=== PATIENT | male | born 1975 | race Caucasian/White ===

== ENCOUNTER 2021-12-10 20:19 | Emergency (ER) | payer OTHER, SELFPAY ==
--- NOTE | ~2021-12-10 | CT_ITS ---
EXAMINATION: CT abdomen pelvis w con DATE: 12/10/2021 22:59 INDICATION: Right lower quadrant abdominal pain radiating to right back TECHNIQUE: Computed tomography (CT) of the abdomen and pelvis was performed with 100 CC Omnipaque 350 intravenous contrast. Automated exposure control and iterative reconstruction technique were employe d. Exam dose: 610.42 mGy-cm total exam DLP. COMPARISON: None. FINDINGS: The lung bases are clear. Normal heart size. No pericardial or pleural effusion. Liver, gallbladder, bile ducts, spleen, pancreas, pancreatic duct, and adrenal glands are unremarkabl e. Approximately 2.5 x 4.4 mm nonobstructing lower pole left renal calculus. Probable 3.5 mm left renal cyst, too small to definitively characterize. No right renal mass lesion o r left or right urinary tract calculus is noted otherwise. The urinary bladder appears normal. Mild prostate enlargement and prostate calcifications. Mild bilateral fat-containing inguinal hernias. Normal caliber of the abdominal aorta. No intraperitoneal or retroperitoneal or pelvic mass lesion or adenopathy or ascites. Normal appendix. No bowel obstruction, bowel wall thickening, pneumatosis or intraperitoneal free air . Small fat-containing umbilical hernia. Included skeletal structures are unremarkable. IMPRESSION: Normal appendix Nonobstructive mild left nephrolithiasis Probable 3.5 mm left renal cyst Small fat-containing umbilical hernia and bilateral small fat-containing inguinal hernias Reviewed, dictated and finalized at [facility] Reviewed, dictated and finalized at [facility] IMPRESSION: Normal appendix Nonobstructive mild left nephrolithiasis Probable 3.5 mm left renal cyst Small fat-containing umbilical hernia and bilateral small fat-containing inguin al hernias
[2021-12-10 20:25] VITALS: BP 152/99; PULSE 102; RESP 18; TEMP 36.9; O2SAT 98
[2021-12-10 20:46] LABS: Basophils Percent Auto 0.5 % (0.2-1.2); Eosinophils Absolute Auto 0.1 K/mm3 (0-0.3); Eosinophils Percent Auto 1.3 % (0-4.4); Hematocrit 46.4 % (42.0-52.0); Hemoglobin 16.6 g/dL (14.0-18.0); Immature Granulocyte Absolute 0.01 K/mm3 (0.00-0.031); Immature Granulocyte Percent A 0.2 % (0-0.5); Lymphocytes Absolute Auto 2.46 K/mm3 (0.9-3.2); Mean Corpuscular HGB Conc 35.8 g/dl (32-36); Mean Corpuscular Hemoglobin 31.4 pg (26-34); Mean Corpuscular Volume 87.7 fl (80-100); Mean Platelet Volume 9.5 fl (7.4-10.4); Monocytes Absolute Auto 0.5 K/mm3 (0.1-0.6); Monocytes Percent Auto 8.1 % (2.6-8.5); Neutrophils Absolute Auto 2.6 K/mm3 (1.3-6.7); Neutrophils Percent Auto 45.9 % (45.5-73.1); Platelet Count Result 278 k/mm3 (150-375); Red Blood Count 5.29 M/mm3 (4.6-6.20); Red Cell Distribution Width 12.4 % (11.5-14.5); White Blood Count 5.6 K/mm3 (4.5-10.0)
[2021-12-10 21:20] LABS: Alanine Aminotransferase 48 U/L (6-50); Alkaline Phosphatase 75 U/L (38-126); Anion Gap 17 mmol/L (8-16); Aspartate Amino Transferase 35 U/L (17-59); Bilirubin,Total 1.3 mg/dL (0.2-1.3); Blood Urea Nitrogen 18 mg/dL (9-20); Calcium 9.3 mg/dL (8.4-10.2); Carbon Dioxide 24 mmol/L (22-30); Chloride 102 mmol/L (98-107); Estimated CRCL calculation 69 ml/min; Estimated Glomerular Filt Rate > 60; Glucose 101 mg/dL (65-110); Potassium 4.1 mmol/L (3.4-5.0); Sodium 143 mmol/L (137-145)
[2021-12-10 21:38] LABS: Appearance Urine Clear (Clear); Bilirubin Urine Negative (Negative); Blood Urine Negative (Negative); Color Urine Yellow (Yellow); Glucose Urine UA Negative (Negative); Ketones Urine Trace mg/dL (Negative); Leukocyte Esterase Ur Negative LEU/UL (Negative); Nitrate Urine Negative (Negative); Protein Urine Negative (Negative)
[2021-12-10 21:40] LABS: Amorphous Sediment Urine Few; Mucus Urine Rare /lpf; RBC Urine 0-2 /hpf (0-2); Squamous Epithelial Cell Urine Rare /hpf (Few); WBC Urine 0-3 /hpf
[2021-12-10 21:41] LABS: Add Urine Microscopic? YES
--- NOTE | 2021-12-10 21:43 | ED.GENADULT ---
HPI - General Adult General Chief complaint: Back Pain/Injury Stated complaint: RKQ and right flank pain Time Seen by Provider: 12/10/21 21:32 Source: RN notes reviewed History of Present Illness HPI narrative: Patient presents emergency room from home for abdominal pain. Patient states pain began proximally 5 days ago. The pain is located right lower quadrant and radiates around to the right flank as well as down into the right groin he states the pain is described as sharp and stabbing. Nothing seems to make the pain better or worse. States he has not take anything for the pain at home. He denies any fevers or chills, nausea vomiting diarrhea or any other symptoms Related Data Allergies Allergy/AdvReac Type Severity Reaction Status Date / Time NKDA Allergy Mild Uncoded 05/16/08 18:22 Review of Systems Review of Systems: Gen.: Denies fevers or chills ENT: Denies congestion Respiratory: Denies shortness of breath or cough CV: Denies chest pain or palpitations GI: See HPI denies burning, urgency, frequency or hematuria Musculoskeletal: Denies back pain or muscle pain Neuro: Denies numbness, tingling, weakness or focal weakness Skin: Denies rash Except as documented, all other systems reviewed and negative [facility] Past Medical History Medical History (Updated 12/11/21 @ 01:31 by Alberto Morgan DO) Patient denies significant medical history Social History Social History (Updated 12/10/21 @ 21:44 by Alberto Morgan DO) Smoking status: Never smoker Exam Narrative: APPEARANCE: No acute distress, nontoxic, resting in bed HEENT: Normocephalic, atraumatic, OMM RESPIRATORY: No respiratory distress, clear to auscultation bilaterally with no rhonchi wheezing or rales CARDIOVASCULAR: RRR s murmur ABDOMINAL: Soft nondistended tender palpation right lower quadrant no tenderness right upper quadrant, left upper quadrant left lower quadrant no rebound or guarding Back: No midline thoracic or lumbar tenderness palpation tender palpation right [place] muscles L3-5 pain increased with rotation of the torso to the right : No skin lesions, no scrotal swelling or erythema bilateral testicles are nontender to palpation no hematoma MUSCULOSKELETAl: Moves all extremities. No clubbing, cyanosis or edema. NEURO: Awake and alert. Following commands, speech normal, no focal deficits SKIN:: Warm, dry. Normal Color PSYCHIATRIC: Normal affect/mood Course Course Emergency Course: Patient states pain was improved with Toradol Discussed with patient results of workup and diagnosis. Discussed need for follow-up with primary care, proper use of medication, and reasons to return to the emergency department. Patient understands and agrees to current treatment plan Vital Signs Vital signs: Vital Signs Temperature 98.5 F 12/10/21 20:25 Pulse Rate 102 H 12/10/21 20:25 Respiratory Rate 18 12/10/21 20:25 Blood Pressure 152/99 H 12/10/21 20:25 Pulse Oximetry 98 12/10/21 20:25 Oxygen Delivery Room Air 12/10/21 20:25 Temperature 98.5 F 12/10/21 20:25 Pulse Rate 79 12/10/21 23:42 Respiratory Rate 20 12/10/21 23:42 Blood Pressure 135/88 12/10/21 23:42 Pulse Oximetry 99 12/10/21 23:42 Oxygen Delivery Room Air 12/10/21 20:[address] [facility] Narrative Medical decision making narrative: Patient's abdomen is soft without significant pain or signs of surgical abdomen on serial exams. Lab and x-ray evaluations are reviewed and patient is felt to be a reasonable candidate for outpatient management. Patient was instructed as to limitations of x-ray and laboratory evaluation and encouraged to return to ED or primary physician for repeat exam in 12 hours if continued or worsening pain at this time I suspect likely musculoskeletal will treat with muscle relaxers and anti-inflammatory medication Vital Signs Vital Signs: Vital Signs Temperature 98.5 F 12/10/21 20:25 Pulse Rate 102 H
[2021-12-10] MEDS: SODIUM CHLORIDE 0.9% IV 1,000 ML 999 ML IV CONT (22:09)
[2021-12-10] MEDS: KETOROLAC 30 MG/ML VIAL (*BKC) IV PUSH (22:09)
[2021-12-10 23:42] VITALS: BP 135/88; PULSE 79; RESP 20; O2SAT 99
--- NOTE | 2021-12-11 01:12 | PC.NURSE ---
RN called CT to see about CT scan. radiology ct technologist states the scan was just sent to stat rad at 15 minutes prior and is at the bottom of list. ERP made aware
== END 2021-12-11 01:47 | disposition home or self-care (01) ==
PROVIDERS: Emergency Medicine; Emergency Provider Emergency Medicine; PCP Family Medicine
DX: M54.50 Low back pain, unspecified (principal); R10.31 Right lower quadrant pain
CPT/HCPCS: 36415; 74177; 80053; 81001; 85025; 96361; 96374; 99284; J1885; J7030; Q9967

== ENCOUNTER 2023-01-23 11:30 | Emergency (ER) | payer OTHER, SELFPAY ==
--- NOTE | ~2023-01-23 | CT_ITS ---
EXAMINATION: CT brain wo con DATE: 01/23/2023 14:04 INDICATION: Headache TECHNIQUE: Computed tomography (CT) of the head was performed without intravenous contrast. Sagittal and coronal reconstructions were performed. The mA was adjusted according to patient size. Iterative reconstruction technique was employed. The dose-length product was 681.00 mGy-cm. COMPARISON: None FINDINGS: No acute intracranial hemorrhage, acute infarction or abnormal extra axial fluid collection. Ventricl es are normal and symmetric. No mass/mass effect. The orbits, paranasal sinuses and mastoid air cells are normal. IMPRESSION: 1. Normal head CT. No acute intracranial process. Reviewed, dictated and finalized at [facility].
[2023-01-23 11:40] VITALS: BP 161/94; PULSE 83; RESP 18; TEMP 36.6; O2SAT 100
[2023-01-23 12:59] VITALS: BP 140/92; PULSE 73; RESP 16; O2SAT 100
--- NOTE | 2023-01-23 13:05 | ECG_ITS ---
Measurements Intervals [place] Rate: 68 P: 44 MA: 156 QRS: -6 QRSD: 98 T: 16 QT: 362 QTc: 386 Interpretive Statements SINUS RHYTHM NORMAL ELECTROCARDIOGRAM NO PREVIOUS ECG AVAILABLE FOR COMPARISON Electronically Signed On 01-23-2023 15:00:49 CDT by Adrián Hopper M.D.
--- NOTE | 2023-01-23 13:07 | ED.HA ---
HPI - Headache General Chief Complaint: Headache Stated Complaint: headache X3 days-HTN Time Seen by Provider: 01/23/23 13:00 Related Data Allergies Allergy/AdvReac Type Severity Reaction Status Date / Time NKDA Allergy Mild Unknown Uncoded 01/23/23 11:43 [facility] Past Medical History Medical History (Updated 01/23/23 @ 14:34 by Alyson Brown III DO) Patient denies significant medical history Social History Social History (Updated 12/10/21 @ 21:44 by Alberto Morgan DO) Smoking status: Never smoker Course Vital Signs Vital signs: Vital Signs Temperature 97.9 F 01/23/23 11:40 Pulse Rate 83 01/23/23 11:40 Respiratory Rate 18 01/23/23 11:40 Blood Pressure 161/94 H 01/23/23 11:40 Pulse Oximetry 100 01/23/23 11:40 Oxygen Delivery Room Air 01/23/23 11:40 Temperature 97.9 F 01/23/23 11:40 Pulse Rate 76 01/23/23 14:25 Respiratory Rate 17 01/23/23 14:25 Blood Pressure 148/98 H 01/23/23 14:25 Pulse Oximetry 100 01/23/23 14:25 Oxygen Delivery Room Air 01/23/23 11:40 MDM - Headache MDM Narrative Medical decision making narrative: pt has sudden onset [place] several days ago and no neuro symptoms, Pt also has elevated BP and is concerned about that. will check ekg and labs and get CT brain. CT neg blood work and ekg fine. Pt feels better after pain meds and wants to go home. Lab Data 01/23/23 13:20 01/23/23 13:20 Labs: Lab Results 01/23/23 Range/Units 13:20 WBC 4.1 L (4.5-10.0) K/mm3 RBC 5.07 (4.6-6.20) M/mm3 Hgb 16.0 (14.0-18.0) g/dL Hct 45.8 (42.0-52.0) % MCV 90.3 (80-100) fl MCH 31.6 (26-34) pg MCHC 34.9 (32-36) g/dl RDW 12.8 (11.5-14.5) % Plt Count 244 (150-375) k/mm3 MPV 9.8 (7.4-10.4) fl Immature Gran % (Auto) 0.2 (0-0.5) % Neut % (Auto) 54.5 (45.5-73.1) % Lymph % (Auto) 37.9 (18.3-44.2) % [place] % (Auto) 5.4 (2.6-8.5) % Eos % (Auto) 1.5 (0-4.4) % Baso % (Auto) 0.5 (0.2-1.2) % Lymph # (Auto) 1.55 (0.9-3.2) K/mm3 [place] # (Auto) 0.2 (0.1-0.6) K/mm3 Eos # (Auto) 0.1 (0-0.3) K/mm3 Baso # (Auto) 0.0 (0.0-0.1) K/mm3 Abs Immat Gran (auto) 0.01 (0.00-0.031) K/mm3 Absolute Neuts (auto) 2.2 (1.3-6.7) K/mm3 Absolute Nucleated RBC 0.0 (0.0-0.012) K/mm3 Nucleated RBC % 0.0 (0.0-0.2) % Sodium 140 (137-145) mmol/L Potassium 4.3 (3.4-5.0) mmol/L Chloride 103 (98-107) mmol/L Carbon Dioxide 28 (22-30) mmol/L Anion Gap 9 (8-16) mmol/L BUN 14 (9-20) mg/dL Creatinine 1.10 (0.7-1.3) mg/dL Estim Creat Clear Calc 77 ml/min Estimated GFR > 60 (59 - ) Glucose 88 (65-110) mg/dL Calcium 9.5 (8.4-10.2) mg/dL Total Bilirubin 1.2 (0.2-1.3) mg/dL AST 30 (17-59) U/L ALT 35 (6-50) U/L Alkaline Phosphatase 66 (38-126) U/L Troponin I < 0.012 (0.000-0.034) ng/mL Total Protein 9.0 H (6.3-8.2) g/dL Albumin 4.9 (3.5-5.1) g/dL Discharge Plan Discharge Clinical Impression: Headache, Hypertension Patient Disposition: Home, Self-Care Condition: Improved Instructions: Antibiotic Form, Acute Headache (ED), Hypertension (ED) Prescriptions: No Action cyclobenzaprine 10 mg tablet 10 mg PO TID PRN (Reason: muscle spasm) Qty: 8 0RF ibuprofen 600 mg tablet 600 mg PO TID PRN (Reason: pain) Qty: 14 0RF Follow-up/Referrals: Harms,Yordan Gutierrez M.D. [Primary Care Provider] -
[2023-01-23 13:18] VITALS: BP 132/94; PULSE 77; RESP 16; O2SAT 100
[2023-01-23] MEDS: ONDANSETRON INJ 4 MG/2 ML VIAL IV PUSH (13:26)
[2023-01-23] MEDS: MORPHINE SULFATE (*CRX) 4 MG/ML INJ IV PUSH (13:27)
[2023-01-23 13:29] LABS: Basophils Percent Auto 0.5 % (0.2-1.2); Eosinophils Absolute Auto 0.1 K/mm3 (0-0.3); Eosinophils Percent Auto 1.5 % (0-4.4); Hematocrit 45.8 % (42.0-52.0); Immature Granulocyte Absolute 0.01 K/mm3 (0.00-0.031); Immature Granulocyte Percent A 0.2 % (0-0.5); Lymphocytes Absolute Auto 1.55 K/mm3 (0.9-3.2); Lymphocytes Percent Auto 37.9 % (18.3-44.2); Mean Corpuscular HGB Conc 34.9 g/dl (32-36); Mean Corpuscular Hemoglobin 31.6 pg (26-34); Mean Corpuscular Volume 90.3 fl (80-100); Mean Platelet Volume 9.8 fl (7.4-10.4); Monocytes Absolute Auto 0.2 K/mm3 (0.1-0.6); Monocytes Percent Auto 5.4 % (2.6-8.5); Neutrophils Absolute Auto 2.2 K/mm3 (1.3-6.7); Neutrophils Percent Auto 54.5 % (45.5-73.1); Platelet Count Result 244 k/mm3 (150-375); Red Blood Count 5.07 M/mm3 (4.6-6.20); Red Cell Distribution Width 12.8 % (11.5-14.5); White Blood Count 4.1 K/mm3 (4.5-10.0)
[2023-01-23 13:39] LABS: Alanine Aminotransferase 35 U/L (6-50); Albumin Level 4.9 g/dL (3.5-5.1); Alkaline Phosphatase 66 U/L (38-126); Anion Gap 9 mmol/L (8-16); Aspartate Amino Transferase 30 U/L (17-59); Bilirubin,Total 1.2 mg/dL (0.2-1.3); Blood Urea Nitrogen 14 mg/dL (9-20); Calcium 9.5 mg/dL (8.4-10.2); Carbon Dioxide 28 mmol/L (22-30); Chloride 103 mmol/L (98-107); Estimated CRCL calculation 77 ml/min; Estimated Glomerular Filt Rate > 60; Glucose 88 mg/dL (65-110); Potassium 4.3 mmol/L (3.4-5.0); Sodium 140 mmol/L (137-145)
[2023-01-23 13:51] LABS: Troponin I < 0.012 ng/mL (0.000-0.034)
[2023-01-23 14:25] VITALS: BP 148/98; PULSE 76; RESP 17; O2SAT 100
== END 2023-01-23 14:42 | disposition home or self-care (01) ==
PROVIDERS: Emergency Provider Emergency Medicine; PCP Family Medicine
DX: R51.9 Headache, unspecified (principal); I10 Essential (primary) hypertension
CPT/HCPCS: 36415; 70450; 80053; 84484; 85025; 93005; 96374; 96375; 99284; J2270; J2405

== ENCOUNTER 2024-08-01 14:41 | Outpatient (CLI) | payer BC, SELFPAY ==
--- NOTE | ~2024-08-01 | CT_ITS ---
Non-contrast CT scan of the Abdomen and Pelvis Clinical indication: Abdominal pain Technique: 2.5 mm axial scans were obtained through the abdomen and pelvis without intravenous or or al contrast. Dose reduction technique was used on this scan by utilizing automated exposure control a nd iterative reconstruction technique. The dose-length product (DLP) was 1113.42 mGy-cm. COMPARISON: 12/10/2021 Findings: Images through the lung bases reveal no abnormalities. 3 mm nonobstructing left renal stone present. No right renal stone. No ureteral stone or hydronephros is on either side. Probable diffuse hepatic steatosis. The spleen, pancreas, gallbladder, and adrenals appear normal. T here is no aortic aneurysm. There is no evidence of bowel obstruction. There is wall thickening and inflammatory change at the mi d sigmoid colon, compatible with acute diverticulitis. No abscess or free air. Images through the pelvis were performed. There is no evidence of ascites or lymphadenopathy. Urinary bladder unremarkable. No pelvic mass seen. No ascites. Impression: Acute diverticulitis of the mid sigmoid colon. No abscess or free air. No bowel obstruction. 3 mm nonobstructing left renal stone. Diffuse hepatic steatosis. Reviewed, dictated and finalized at [facility]. Impression: Acute diverticulitis of the mid sigmoid colon. No abscess or free air. No bowel obstruction. 3 mm nonobstructing left renal stone. Diffuse hepatic steatosis.
== END 2024-08-01 14:42 | disposition home or self-care (01) ==
PROVIDERS: PCP Nurse Practitioner Family; Visit Provider Nurse Practitioner Family
DX: K57.32 Diverticulitis of large intestine without perforation or abscess without bleeding (principal); N20.0 Calculus of kidney; K76.0 Fatty (change of) liver, not elsewhere classified
CPT/HCPCS: 74176

== ENCOUNTER 2024-08-02 02:11 | Emergency (ER) | payer BC, SELFPAY ==
--- NOTE | ~2024-08-02 | CT_ITS ---
CT of the Abdomen and Pelvis: Indication: Abdominal pain Technique: 2.5 mm axial scans were obtained through the abdomen and pelvis following intravenous adm inistration of 100 cc of Omnipaque 350. Dose reduction technique was used on this scan by utilizing a utomated exposure control and iterative reconstruction technique. The dose-length product (DLP) was 8 68.76 mGy-cm. COMPARISON: Noncontrast exam performed earlier on 08/01/2024. Findings: Scans through the lung bases are unremarkable. There is diffuse hepatic steatosis. The spleen, pancreas, gallbladder, adrenals and right kidney are within normal limits. 5 mm nonobstructing left renal stone present. No evidence of aortic aneurysm. No lymphadenopathy. There is wall thickening and pericolonic inflammatory change of the mid sigmoid colon, compatible wit h acute diverticulitis. No abscess or free air evident. No bowel obstruction. Images through the pelvis were performed. Urinary bladder unremarkable. Prostate gland is unremarkabl e. No ascites. Impression: Acute sigmoid diverticulitis. No abscess or free air. Diffuse hepatic steatosis. 5 mm nonobstructing left renal stone. Reviewed, dictated and finalized at location . Impression: Acute sigmoid diverticulitis. No abscess or free air. Diffuse hepatic steatosis. 5 mm nonobstructing left renal stone.
--- OUTSIDE RECORDS SUMMARY | 2024-08-02 02:14 | XMS_ITS | Encounter Summary ---
Author Organization [facility] Healthcare Address [address] [place] [address] Care Team Providers Care Fleet Technician Name Role Phone Yordan Gomez MD Primary Care Provider [phone] Encounter Details Date Type Department Care Team (Late st Contact Info) Description 07/23/2024 Results Follow-Up [facility] [address] [place] [address] Lindy Gallagher, JEWELRY BENCH WORKER [address] [place] [address] Vitamin D deficiency (Primary Dx) Social History Tobacco Use Types Packs/Day Years Used Date Smoking Tobacco: Former Cigarettes 0.3 5.2 Smokeless Tobacco: Never Alcohol Use Standard Drinks/Week Comments Yes 0 (1 standard drink = 0.6 oz pur e alcohol) Occassional AUDIT-C Answer Date Recorded Q1: How often do you have a drink containing alc ohol? 2-3 times a week 07/20/2022 Q2: How many drinks containi ng alcohol do you have on a typical day when you are drinking? 3 or 4 07/20/2022 Q3: How often do you have si x or more drinks on one occasion? 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 Gender Identity Male 12/19/2019 2:38 PM CDT Sexual Orientation Straight 12/19/2019 2: 38 PM CDT documented as of this encounter Ordered Prescriptions Prescription Sig Dispense Quantity Refills Last Filled Start Date End Date ergocalciferol (VITAMIN D) 50,000 unit capsule Take 1 capsule (50,000 Units total) by mouth once a week 12 capsule 4 07/23/2024 documented in this encounter Plan of Treatment Scheduled Orders Name Type Priority Associated Diagnoses Orde r Schedule Vitamin D 25 hydroxy Lab Routine Vitamin D deficiency Expected: 10/22/2024, Expires: 07/23/2025 documented as of this encounter Visit Diagnoses Diagnosis Vitamin D deficiency- Primary documented in this encounter Care Teams Fleet Technician Relationship Specialty Start Date End Date Yordan Gomez MD [address] [place] [address] PCP - General 06/30/16 documented as of this encounter
--- OUTSIDE RECORDS SUMMARY | 2024-08-02 02:14 | XMS_ITS | Clinical Summary ---
Author Organization [facility] Address [address] [place] [address] Care Team Providers Care Certified Diabetes Educator Name Role Phone Yordan Gomez MD Primary Care Provider [phone] Allergies No known active allergies Medications pravastatin (PRAVACHOL) 40 mg tabletIndications:M ixed hyperlipidemia TAKE 1 TABLET(40 MG) BY MOUTH DAILY 100 tablet 4 Active ezetimibe (ZETIA) 10 mg tablet Take 1 tablet (10 mg total) by mouth daily 90 tablet 4 4 09/13/19 25 Active omeprazole (PriLOSEC) 20 mg capsuleIndications: Abdominal bloating TAKE 1 CAPSULE(20 MG) BY MOUTH DAILY 100 capsule 1 5 Active testosterone cypionate, bulk, 100 % powder 0 5 Active ergocalciferol (VITAMIN D) 50,000 unit capsule Take 1 capsule (50,000 Units total) by mouth once a week 12 capsule 4 5 07/24/19 26 Active Active Problems Problem Noted Date Diagnosed Date 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 He did bring in a list of labs that they have requested. I did place those orders for him today as well. He will continue to follow testosterone placement with specialist. Fatigue 07/29/2024 Assessment & Plan (07/29/2024 3:45 PM CDT): Will check vitamin-D level along with labs requested by functional health medicine. Chronic bilateral lower abdominal pain Assessment & Plan (07/29/2024 3:46 PM CDT): Pain across low abdomen pelvis in the mornings. Chronic. Chronic back pain. Back pain has been manageable. Will check abdominal CT to rule out possible diverticulitis although less likely. Class 1 obesity due to exces s calories with serious comorbidity and body mass index (BMI) of 32.0 to 32.9 in adult 07/29/2024 Annual physical exam 01/30/2024 Assessment & Plan (01/30/2024 8:37 AM CDT): In regard to health maintenance, Colonoscopy utd repeat 2030 Influenza vaccine utd Eat a healthy diet: focus on lean meats and proteins, more fruits, vegetables and whole grains and low in sugars and fats. Limit red meat and avoid processed meat. Maintain a healthy weight; avoid being overweight. Aim for a normal body mass index (BMI) of 18.5-24.9. Help learning to eat healthier, we can set up appointment with dairy nutritionist/certified medication technician. Have an active lifestyle, strive for 30 minutes of moderate exercise 5 times a week and strength or resistance training at least twice a week. Use broad-spectrum (UVA+UVB) sunscreen with SPF 30 or greater, is water resistant, limit time spent in the sun (10 am-4pm), wear hat, wear UV protective clothing, wear sunglasses. Never use a tanning bed. Skin that was irradiated may be more sensitive over your lifetime. Do not smoke or chew tobacco; participate in a smoking cessation program. Limit alcohol intake, 1 drink per day for a woman and 2 drinks per day for a man. Chronic bilateral low back pain without sciatica 01/30/2024 Assessment & Plan (01/30/2024 8:38 AM CDT): Continued back pain. Will refer to pain management. Will be provided with the phone number to call. Appreciate their expertise. Helga abdominal pain 01/30/2024 Assessment & Plan (01/30/2024 8:42 AM CDT): Benign abdominal exam. No noted enlarged lymph nodes. Will order CT for further evaluation. Gastroesophageal reflux disease 07/27/2023 Assessment & Plan (07/27/2023 8:04 AM CDT): Continue with omeprazole. Avoid triggers. Acute bilateral low back pain without sciatica 0 07/27/2023 Assessment & Plan (07/27/2023 8:05 AM CDT): Will obtain imaging and refer for physical therapy. Offered muscle relaxant but he declines. He will take p.r.n. ibuprofen OTC with food. Will monitor response. Class 1 obesity due to exces s calories with serious comorbidity and body mass index (BMI) of 31.0 to 31.9 in adult 07/27/2023 Nephrolithiasis 01/17/2022 Mixed hyperlipidemia 01/14/2021 Assessment & Plan (07/29/2024 3:44 PM CDT): Continue ezetimibe and recommend pravastatin. Will check lipid panel. Will continue to monitor. Assessment & Plan (01/30/2024 8:37 AM CDT): He is taking ezetimibe. Stopped pravastatin. Discussed we normally take both of these meds together. Adjunct treatment. Will check lipid panel today and plan accordingly. Assessment & Plan (07/27/2023 8:04 AM CDT): Will stay off statin and check lipid panel. Will plan accordingly once results are received. Encouraged heart healthy diet and exercise. Assessment & Plan (01/14/2021 9:47 AM CDT): 04/07/17 XQ=559 HDL=49 XQ=337 NWW=635 AWAURK=828 12/16/20 BX=801 HDL=59 NA=317 KPI=827 TC/HDL=3.7 MYPZQD=064 12/14/20 TT=698 HDL=59 OA=467 TMF=567 TC/HDL=4 PGGFWR=690 The 10-year ASCVD risk score (Ovid JOSE Jr., et al., 2013) is: 1.6% Values used to calculate the score: Age: 45 years Sex: Male Is Non- : No Diabetic: No Tobacco smoker: No Systolic Blood Pressure: 120 mmHg Is BP treated: No HDL Cholesterol: 59 mg/dL Total Cholesterol: 221 mg/dL Pravastatin 20mg increased to 40mg daily d/t elevated TC/LDL. Patient should focus on limiting bad fats in the diet and using exercise as a way to improve the lipid status. Secondary prevention. Reviewed medications. Denies any statin Ses. Reviewed diet/exercise recommendations. Reviewed red flags. To make f/u appt in 6 mos & have labs drawn few days prior. Gallbladder polyp 11/10/2020 Family history of colon cancer 09/28/2020 Abdominal bloating 09/28/2020 Early satiety 09/28/2020 LUQ discomfort 09/28/2020 Bowel habit changes 09/28/2020 History of duodenal ulcer 09/28/2020 Resolved Problems Problem Noted Date Diagnosed Date Resolved Date BMI 28.0-28.9,adult 01/14/2021 07/27/19 Assessment & Plan (01/14/2021 9:23 AM CDT): Discussed healthy diet and importance of regular physical activity. Need for influenza vaccination 01/14/2021 07/27/2023 Assessment & Plan (01/14/2021 9:24 AM CDT): Flu vaccine given today. Discussed possible tenderness/redness at injection site. Encounters Date Type Department Care Team Description 08/01/2024 Telephone [facility] [address] [address] Yordan Gomez MD Request For Order(s) 07/23/2024 Results Follow-Up [facility] [address] [address] Lindy Gallagher, TERESITA Vitamin D deficiency (Primary Dx) 07/17/2024 7:00 AM CDT Office Visit [facility] [place] [address] [place] [id number] Lindy Gallagher NP Mixed hyperlipidemia (Primary Dx); Testicular hypofunction; Fatigue, unspecified type; Chronic bilateral lower abdominal pain; Class 1 obesity due to excess calories with serious comorbidity and body mass index (BMI) of 32.0 to 32.9 in adult 07/01/2024 Telephone [facility] [address] [address] Lindy Gallagher NP from Last 3 Months Immunizations Immunization Administration Dates Next Due Influenza, Quadrivalent, Spl it, Preservative Free, Intramuscular 01/19/2023,01/17/2022,01/14/2021,12/15 Influenza, Split 01/30/2013 Influenza, Trivalent, Preser vative Free, Intramuscular 01/30/2024,02/25/2014 Influenza, Unspecified 01/01/2021,01/01/2017,04/2016 Surgical History Surgery Date Site/Laterality Comments COLONOSCOPY 12/15/2020 1st GURPREET 2012 Medical History Medical History Date Comments Hyperlipidemia GERD (gastroesophageal reflux disease) 2020 Peptic ulceration 1996 Family History Medical History Relation Name Comments Cancer Father Fred Lymphoma Father Fred Other Father Fred Healthy; Coronary artery disease Maternal Grandfather Coronary artery disease; Cancer Maternal Grandmother Mariela Other Mother Healthy; Cancer Paternal Grandfather Scott Coronary artery disease Paternal Grandfather Scott Coronary artery disease; Heart disease Paternal Grandfather Scott COPD Paternal Grandmother Gianna Cancer Paternal Grandmother Gianna Diabetes Paternal Grandmother Gianna Diabetes type II Paternal Grandmother Gianna D M Type II; Relation Name Status Comments Father Fred Maternal Grandfather Alive Maternal Grandmother Mariela Mother Alive Paternal Grandfather Scott Alive Paternal Grandmother Gianna Alive Social History Tobacco Use Types Packs/Day Years Used Date Smoking Tobacco: Former Cigarettes 0.3 5.2 Smokeless Tobacco: Never Tobacco Cessation:Counseling Given: Not Answered Alcohol Use Standard Drinks/Week Comments Yes 0 [...] on file 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 Gender Identity Male 12/19/2019 2:38 PM CDT Sexual Orientation Straight 12/19/2019 2: 38 PM CDT Obstetrics History Last Filed Vital Signs Vital Sign Reading Time Taken Comments Blood Pressure 124/80 07/17/2024 6:56 AM CDT Pulse 71 07/17/2024 6:56 AM CDT Temperature 36.7 C (98.1 F) 07/17/2024 6:56 AM CDT Respiratory Rate 18 07/17/2024 6:56 AM CDT Oxygen Saturation 99% 07/17/2024 6:56 AM CDT Inhaled Oxygen Concentration - - Weight 102.8 kg (226 lb 11.2 oz) 07/17/2024 6:56 AM CDT Height 177.8 cm (5' 10 ) 07/17/2024 6:56 AM CDT Body Mass Index 32.53 07/17/2024 6:56 AM CDT Plan of Treatment Health Maintenance Due Date Last Done Comments DTaP/Tdap/Td Vaccine (1 - Tdap) 09/24/1987 Hepatitis B Screening 1994 Regular Well Visit/Exam 18-64 01/29/2025 01/30/2024, 01/19/2023, 01/17/2022, Additional history exists Depression Screening 07/17/2025 07/17/2024, 01/30/2024, 01/19/2023, Additional history exists Colon Cancer Screening-Colonoscopy 12/15/2030 12/15/2020 Hepatitis C Screening Completed 06/30/2016 Influenza Vaccine Completed 01/30/2024, , 01/17/2022, Additional history exists Pneumococcal vaccine <65 Aged Out No longer eligible based on patient's age to complete this topic Procedures Procedure Name Priority Date/Time Associated Diagnosis Comments TSH Routine 07/17/2024 FSH, SERUM Routine 07/17/2024 LH - LUTEINIZING HORMONE, SERUM Routine 07/17/2024 TESTOSTERONE, FREE, BIOVAILABLE AND TOTAL, MALES (ADULT),IMMUNOASSAY Routine 07/17/2024 LIPID PANEL Routine 07/17/2024 COMPREHENSIVE METABOLIC PANEL Routine 07/17/2024 CBC WITH AUTO DIFFERENTIAL Routine 07/17/2024 PSA, TOTAL Routine 07/17/2024 VITAMIN D 25 HYDROXY Routine 07/17/2024 COLONOSCOPY 12/15/2020 2:38 PM CDT HEPATITIS C RNA, QUANTITATIVE, PCR Routine 06/30/2016 1:55 PM CDT from Last 3 Months or Most Recently Relevant to Health Maintenance Results * Testosterone, Free, Biovailable and total, Males (adult),immunoassay (07/17/2024) Blood 07/17/2024 Narrative [facility] - 07/17/2024 9:58 AM CDT TESTOSTERONE, TOTAL, MALES (Adult): 380 ng/dL Reference Range: 250-827 ng/dL ALBUMIN: 4.6 g/dL Reference Range: 3.6-5.1 g/dL SEX HORMONE BINDING GLOBULIN: 12 nmol/L Reference Range: 10-50 nmol/L TESTOSTERONE, FREE: 97.6 pg/mL Reference Range: 46.0-224.00 pg/mL TESTOSTERONE, BIOAVAILABLE: 205.0 ng/dL Reference Range: 110.0-575.0 ng/dL us Historical Provider LAB BLOOD ORDERABLES Eva l Result [facility] * PSA, total (07/17/2024) SCRIBED PSA, Total 0.85 <= 4.00 ng/mL [facility] Blood 07/17/2024 [facility] Provider MD LAB BLOOD ORDERABLES Eva l Result Performing Organization Address [facility] de Phone Number [facility] * (ABNORMAL) LH - Luteinizing Hormone, Serum (07/17/2024) Blood 07/17/2024 Narrative [facility] - 07/17/2024 9:30 AM CDT Result: 0.2 L (LOW) Reference Range: 1.5-9.3 mIU/mL [facility] Provider MD LAB BLOOD ORDERABLES Edit ed Result - Final Performing Organization Address [facility] de Phone Number [facility] * (ABNORMAL) FSH, Serum (07/17/2024) Blood 07/17/2024 Narrative [facility] - 07/17/2024 9:30 AM CDT Result: <0.7 L (LOW) Reference Range: 1.4 - 12.8 mIU/mL [facility] Provider MD LAB BLOOD ORDERABLES Edit ed Result - Final Performing Organization Address [facility] de Phone Number [facility] * CBC with auto differential (07/17/2024) SCRIBED WBC 4.8 3.8 - 10.8 k/cumm [facility] SCRIBED RBC 5.23 4.20 - 5.80 m/cumm [facility] SCRIBED Hemoglobin 16.3 13.2 - 17.1 g/dL [facility] SCRIBED Hematocrit 48.2 38.5 - 50.0 % [facility] SCRIBED MCH 31.2 27.0 - 33.0 pg [facility] SCRIBED MCHC 33.8 32.0 - 36.0 g/dL [facility] SCRIBED RDW CV 13.4 11.0 - 15.0 % [facility] SCRIBED Platelets 246 140 - 400 k/cumm [facility] SCRIBED MPV 9.7 7.5 - 12.5 fL [facility] SCRIBED Lymphocytes 39.5 Not given % [facility] SCRIBED Monocytes 6.4 Not given % [facility] SCRIBED Neutrophils 51.8 Not given % [facility] SCRIBED Eosinophils 1.9 Not given % [facility] SCRIBED Basophils 0.4 Not given % [facility] SCRIBED Lymphocytes Abs 1,896 850 - 3,900 k/cumm [facility] SCRIBED Monocytes Abs 307 200 - 950 k/cumm [facility] SCRIBED Neutrophils Abs 2,486 1,500 - 7,800 k/cumm [facility] SCRIBED Eosinophils Abs 91 15 - 500 k/cumm [facility] SCRIBED Basophils Abs 19 0 - 200 k/cumm [facility] SCRIBED MCV 92.2 80.0 - 100.0 fl [facility] Blood 07/17/2024 Historical Provider MD LAB BLOOD ORDERABLES Eva l Result Performing Organization Address City/[facility]/ZIP Co de Phone Number [facility] * (ABNORMAL) Vitamin D 25 hydroxy (07/17/2024) Pathologist [facility] [place] SCRIBED 25-OH Vitamin D 24 30 - 100 ng/mL [facility] Blood 07/17/2024 [facility] Provider MD LAB BLOOD ORDERABLES Eva l Result Performing Organization Address [facility]/ZIP Co de Phone Number [facility] * TSH (07/17/2024) Scribed TSH 1.19 0.40 - 4.50 mcU/mL [facility] Blood 07/17/2024 Result [facility] Provider MD LAB BLOOD ORDERABLES Edit ed Result - Final [facility] * (ABNORMAL) Lipid panel (07/17/2024) SCRIBED Cholesterol, Total 191 <200 mg/dL [facility] SCRIBED HDL 49 >= 40 mg/dL [facility] SCRIBED LDL 123 <100 mg/dL [facility] SCRIBED Triglycerides 90 <150 mg/dL [facility] Blood 07/17/2024 Historical Provider MD LAB BLOOD ORDERABLES Edit ed Result - Final Performing Organization Address [facility]/[place] de Phone Number [facility] * Comprehensive metabolic panel (07/17/2024) SCRIBED Sodium 141 135 - 146 mmol/L [facility] SCRIBED Potassium 4.6 3.5 - 5.3 mmol/L [facility] SCRIBED Chloride 104 98 - 110 mmol/L [facility] SCRIBED Carbon Dioxide 28 20 - 32 mmol/L [facility] SCRIBED Urea Nitrogen (BUN) 16 7 - 25 mg/dl [facility] SCRIBED Creatinine 1.29 0.60 - 1.29 mg/dl [facility] SCRIBED Glucose 93 65 - 99 mg/dl [facility] SCRIBED Calcium 9.2 8.6 - 10.3 mg/dl [facility] SCRIBED Bilirubin 1.1 0.2 - 1.2 mg/dl [facility] SCRIBED Plasma Protein 7.4 6.1 - 8.1 g/dl [facility] SCRIBED Albumin 4.6 3.6 - 5.1 g/dl [facility] SCRIBED Alkaline Phosphatase 60 36 - 130 Units/L [facility] SCRIBED Alanine Transaminase (ALT) 43 9 - 46 Units/L [facility] SCRIBED Aspartate Transaminase (AST) 22 10 - 40 Units/L [facility] SCRIBED eGFR in NonAfrican Pakistani 69 >=60 [facility] Blood 07/17/2024 Historical Provider LAB BLOOD ORDERABLES Edit ed Result - Final Performing Organization Address [facility] [facility] de Phone Number [facility] * COLONOSCOPY (12/15/2020 2:38 PM CDT) Anatomical Region Laterality Modality Other Narrative Procedure Note Franklin Cerda MD - 12/15/2020 2:38 PM CDT [facility] Patient Name: Jean Starr Procedure Date: 12/15/2020 2:38 PM Date of : 1975 Admit Type: Outpatient Age: 45 Gender: Male Attending MD: Franklin Cerda M.D. Room: [facility] ENDOSCOPY ROOM 1 Note Status: Finalized Patient Profile: This is a 45 year old male. Grandfather had colon cancer. Patient complains of pain in the rectalarea. Colonoscopy for evaluation Procedure: Colonoscopy Indications: Screening in patient at increased risk: Familyhistory of 1st-degree relative with colorectal cancer, Thisis the patient's first colonoscopy Referring MD: Yordan Gomez M.D. Providers: Franklin Cerda M.D. Impression: - Perianal skin tags found on perianal exam. - The entire examined colon is normal overall. - Mild early diverticulosis in the distal sigmoid colon. - Internal hemorrhoids. - No specimens collected. Recommendation: - Repeat colonoscopy in 10 years for screening purposes. - Continue present medications. - Use [id number] antibiotic ointment on the perianal skin tag lesion twice daily for 1 week. If pain continued then referral to Rectal surgery for evaluation and surgical excision. Medicines: Monitored Anesthesia Care Complications: No immediate complications. Estimated Blood Loss: Estimated blood loss: none. Procedure: Pre-Anesthesia Assessment: - Prior to the procedure, a History and Physicalwas performed, and patient medications and allergieswere reviewed. The patient's tolerance of previous anesthesia was also reviewed. The risks andbenefits of the procedure and the sedation options and risks were discussed with the patient. All questions were answered, and informed consent was obtained. Prior Anticoagulants: The patient has taken no previous anticoagulant or antiplatelet agents. ASA Grade Assessment: II - A patient with mild systemicdisease. After reviewing the risks and benefits, the patient was deemed in satisfactory condition to undergo the procedure. The benefits, risks and alternatives of theprocedure and sedation were discussed and informed consentwas obtained. All questions were answered. Please referto the signed informed consent document in the medical record. The scope was passed under direct vision.The Pediatric Colonoscope PCF-H190L [id number] was introduced through the anus and advanced to the the cecum, identified by appendiceal orifice andileocecal valve. The bowel preparation used was Miralax via split dose instruction. The bowel preparation usedwas bisacodyl tablets via split dose instruction. Bowel prep was administered using a split dose. Thequality of the bowel preparation was excellent. Findings: Perianal fibrosed skin tag noted at 6 o'clock position from the anal verge. The cecum appeared normal. The terminal ileum was normal The colon (entire examined portion) appeared normal overall. Nopolyps and no mass lesions noted A few small-mouthed diverticula were found in the distal sigmoidcolon. Internal hemorrhoids were found during retroflexion. The hemorrhoids were small. Electronically signed by Franklin Cerda M.D. Franklin Cerda M.D. 12/15/2020 3:34:35 PM Number of Addenda: 0 Note Initiated On: 12/15/2020 2:38 PM Procedure Code(s): --- Professional --- 38512, Colonoscopy, flexible; diagnostic, including collection of specimen(s) by brushing or washing, when performed (separateprocedure) Diagnosis Code(s): --- Professional --- Z80.0, Family history of malignant neoplasm of digestive organs K64.8, Other hemorrhoids K64.4, Residual hemorrhoidal skin tags K57.30, Diverticulosis of large intestine without perforation orabscess without bleeding CPT copyright 2019 [employer]. All rights reserved. The codes documented in this report are preliminary and upon leak inspector reviewmay be revised to meet current compliance requirements. Recognized by the [employer] for promoting quality in endoscopy Franklin Cerda MD ENDOSCOPY PROCEDURES Final Result * Hepatitis C RNA, quantitative, PCR (06/30/2016 1:55 PM CDT) HCV RNA qn Undetected Undetected IUnits/mL [facility] Comment: Result in log IU/mL is Undetected. ADDITIONAL INFORMATION The quantification range of this assay is 15 to 100,000,000 IU/mL (1.18 log to 8.00 log IU/mL). Testing was performed by the [employer] TaqMan HCV Test, version 2.0 ([employer] Test Performed by: [facility] [place] [address] Blood specimen (specimen) 06/30/2016 1:55 PM CDT 06/30/2016 2:33 PM CDT Jonathon Rand MD LAB MICROBIOLOGY - GENERAL OR DERABLES Final Result [facility]) [address] [place] [address] Department [place] [address] from Last 3 Months or Most Recently Relevant to Health Maintenance Insurance [email or web address] [place] [email or web address] [place] For more information, please contact: [phone] * Full Code (Latest Code Status on File) Date Activated Date Inactivated Comments 12/15/2020 1:00 PM 12/15/2020 8:02 PM Care Teams Certified Diabetes Educator Relationship Specialty Start Date End [place] [address] PCP - General 06/30/16
--- OUTSIDE RECORDS SUMMARY | 2024-08-02 02:14 | XMS_ITS | Clinical Summary ---
Author Organization [facility] Address [facility] [place] [address] Care Team Providers Care Sulfur Burner Name Role Phone Juan J Treadwell MD Primary Care Provider Unavailab le Social History Tobacco Use Types Packs/Day Years Used Date Smoking Tobacco: Never Assessed Sex and Gender Information Value Date Recorded Sex Assigned at Not on file Legal Sex Male 5:16 PM CDT Gender Identity Not on file Sexual Orientation Not on file Plan of Treatment Health Maintenance Due Date Last Done Comments Colorectal Cancer Screening Colonoscopy (10 Years) 1976 Annual Physical 09/24/1979 Hepatitis C 1994 DTaP, Tdap and Td Vaccines ( 1 - Tdap) 09/24/1995 Hepatitis B Vaccines (1 of 3 - 19+ 3-dose series) 09/24/1995 COVID-19 Vaccine ( - 2023-2 5 season) 2023 Meningococcal B Vaccine Aged Out No l onger eligible based on patient's age to complete this topic Meningococcal Vaccine Aged Out No he pepe eligible based on patient's age to complete this topic Pneumococcal Vaccine: Pediat rics (0 to 5 Years) and At-Risk Patients (6 to 49 Years) Aged Out No longer eligible b ased on patient's age to complete this topic RSV Immunizations Under 20 Months Aged Out No longer eligible based on patient's age to complete this topic Care Teams Sulfur Burner Relationship Specialty Start Date End Date Juan J Treadwell MD PCP - General 07/29/10
--- OUTSIDE RECORDS SUMMARY | 2024-08-02 02:14 | XMS_ITS | Referral Summary ---
Author Organization [employer] Address [address] [place] [address] Care Team Providers Care Machine Oiler Name Role Phone Yordan Gomez MD Primary Care Provider +1 [phone] Encounters Date Type Department Care Team Description 08/01/2024 Telephone [facility] [address] [address] Yordan Gomez MD Request For Order(s) 07/23/2024 Results Follow-Up [facility] [address] [address] Lindy Gallagher NP Vitamin D deficiency (Primary Dx) 07/17/2024 7:00 AM CDT Office Visit [facility] [address] [address] Lindy Gallagher NP Mixed hyperlipidemia (Primary Dx); Testicular hypofunction; Fatigue, unspecified type; Chronic bilateral lower abdominal pain; Class 1 obesity due to excess calories with serious comorbidity and body mass index (BMI) of 32.0 to 32.9 in adult 07/01/2024 Telephone [facility] [address] [address] Lindy Gallagher NP from Last 3 Months Allergies No known active allergies Medications pravastatin [...] healthier, we can set up appointment with portainer operator/tow truck driver. Have an active lifestyle, strive for 30 [...] phone number to call. Appreciate their expertise. Colicky abdominal pain 01/30/2024 Assessment & Plan (01/30/2024 [...] & Plan (01/14/2021 9:47 AM CDT): 04/07/17 DD=793 HDL=49 KF=785 NHJ=431 EBVPOI=514 12/16/20 FY=655 HDL=59 FJ=009 YNB=313 TC/HDL=3.7 ZMIQBE=614 12/14/20 YY=618 HDL=59 LF=866 RMX=940 TC/HDL=4 ZXTFXK=271 The 10-year ASCVD risk score (Kalievita GARCIA Jr., et al., 2013) is: 1.6% Values [...] Date Resolved Date BMI 28.0-28.9,adult 01/14/2021 07/27/19 24 Assessment & Plan (01/14/2021 9:23 AM CDT): Discussed healthy diet and importance of regular physical activity. Need for influenza vaccination 01/14/2021 07/27/2023 Assessment & Plan (01/14/2021 9:24 AM CDT): Flu vaccine given today. Discussed possible tenderness/redness at injection site. 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 Gender Identity Male 12/19/2019 2:38 PM CDT Sexual Orientation Straight 12/19/2019 2: 38 PM CDT Last Filed Vital Signs Vital Sign Reading [...] 07/17/2024 6:56 AM CDT Plan of Treatment Not on file Procedures Procedure Name Priority Date/Time Associated Diagnosis [...] BIOAVAILABLE: 205.0 ng/dL Reference Range: 110.0-575.0 ng/dL Result [facility] Provider MD LAB BLOOD ORDERABLES Eva l Result Performing Organization Address [facility] Phone Number [facility] * PSA, total (07/17/2024) SCRIBED PSA, Total 0.85 <= 4.00 ng/mL [facility] Blood 07/17/2024 Result [facility] MD LAB BLOOD ORDERABLES Eva l Result Performing Organization Address [facility] Phone Number [facility] * (ABNORMAL) LH - Luteinizing Hormone, Serum (07/17/2024) Blood 07/17/2024 Narrative [facility] - 07/17/2024 9:30 AM CDT Result: 0.2 L (LOW) Reference Range: 1.5-9.3 mIU/mL Result [facility] Provider MD LAB BLOOD ORDERABLES Edit ed Result - Final Performing Organization Address [facility] de Phone Number [facility] * (ABNORMAL) FSH, Serum (07/17/2024) Blood 07/17/2024 Narrative [facility] - 07/17/2024 9:30 AM CDT Result: <0.7 L (LOW) Reference Range: 1.4 - 12.8 mIU/mL Result [facility] Provider MD LAB BLOOD ORDERABLES Edit ed Result - Final [facility] * CBC with auto differential (07/17/2024) [...] MD LAB BLOOD ORDERABLES Eva l Result [facility] * (ABNORMAL) Vitamin D 25 hydroxy (07/17/2024) SCRIBED 25-OH Vitamin D 24 30 - 100 ng/mL [facility] Blood 07/17/2024 Historical Provider MD LAB BLOOD ORDERABLES Eva l Result Performing Organization Address [facility]/ZIP Co de Phone Number [facility] * TSH (07/17/2024) Scribed TSH 1.19 0.40 - 4.50 mcU/mL [facility] Blood 07/17/2024 Historical Provider MD LAB BLOOD ORDERABLES Edit ed Result - Final Performing Organization Address [facility]/ZIP Co de Phone Number [facility] * (ABNORMAL) Lipid panel (07/17/2024) SCRIBED Cholesterol, Total 191 <200 mg/dL [facility] SCRIBED HDL 49 >= 40 mg/dL [facility] SCRIBED LDL 123 <100 mg/dL [facility] SCRIBED Triglycerides 90 <150 mg/dL [facility] Blood 07/17/2024 Historical Provider LAB BLOOD ORDERABLES Edit ed Result - Final Performing Organization Address [facility] Co de Phone Number [facility] * Comprehensive [...] 40 Units/L [facility] SCRIBED eGFR in NonAfrican Taiwanese 69 >=60 [facility] Blood 07/17/2024 us Historical Provider LAB BLOOD ORDERABLES Edit ed Result - Final [facility] * COLONOSCOPY (12/15/2020 2:38 PM CDT) Anatomical Region Laterality Modality Other Narrative Procedure Note Franklin Cerda MD - 12/15/2020 2:38 PM CDT [facility] Patient Name: Jean Starr Procedure Date: 12/15/2020 2:38 PM Date of : 1975 Admit Type: Outpatient Age: 45 Gender: Male Attending MD: Franklin Cerda M.D. Room: [facility] END[facility]COPY ROOM 1 Note Status: Finalized Patient [...] purposes. - Continue present medications. - Use qtco-eqr-twjdlir antibiotic ointment on the perianal skin tag [...] passed under direct vision.The Pediatric Colonoscope PCF-H190L [id number] was introduced through the anus and advanced [...] 2:38 PM Procedure Code(s): --- Professional --- 87037, Colonoscopy, flexible; diagnostic, including collection of specimen(s) by brushing or washing, when performed (separateprocedure) Diagnosis Code(s): --- Professional --- Z80.0, Family history of malignant neoplasm of digestive organs K64.8, Other hemorrhoids K64.4, Residual hemorrhoidal skin tags K57.30, Diverticulosis of large intestine without perforation orabscess without bleeding CPT copyright 2019 [employer]. All rights reserved. The codes documented in this report are preliminary and upon variety performer reviewmay be revised to meet current compliance requirements. Recognized by the [employer] for promoting quality in endoscopy us Franklin Cerda MD ENDOSCOPY PROCEDURES Final Result * Hepatitis C RNA, quantitative, PCR (06/30/2016 1:55 PM CDT) HCV RNA qn Undetected Undetected IUnits/mL CHRISTIAN TY (TUNG) Comment: Result in log IU/mL is Undetected. ADDITIONAL INFORMATION The quantification range of this assay is 15 to 100,000,000 IU/mL (1.18 log to 8.00 log IU/mL). Testing was performed by the SPENCER AmpliPrep/SPENCER TaqMan HCV Test, version 2.0 ([employer] Test Performed by: [address] [address] Blood specimen (specimen) 06/30/2016 1:55 PM CDT 06/30/2016 2:33 PM CDT Jonathon Rand MD LAB MICROBIOLOGY - GENERAL OR DERABLES Final Result [facility] 1 [facility] Department [place] [address] from Last 3 Months or Most Recently Relevant to Health Maintenance Insurance [place] [employer] [place] Advance Directives For more information, please contact: [phone] * Full Code (Latest Code Status on File) Date Activated Date Inactivated Comments 12/15/2020 1:00 PM 12/15/2020 8:02 PM Care Teams Machine Oiler Relationship Specialty Start Date End Date Yordan Gomez MD [address] [place] [address] PCP - General 06/30/16
--- OUTSIDE RECORDS SUMMARY | 2024-08-02 02:14 | XMS_ITS | Encounter Summary ---
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 Patient is scheduled for this afternoon. Order faxed to [phone]. documented in this encounter Plan of Treatment Not on file documented as of this encounter Visit Diagnoses Not on filedocumented in this encounter Care Teams Pbx Supervisor Relationship Specialty Start Date End Date Yordan Gomez MD [address] [place] [address] PCP - General 06/30/16 documented as of this encounter
[2024-08-02 02:15] VITALS: BP 159/106; PULSE 108; RESP 20; TEMP 37.1; O2SAT 100
[2024-08-02 02:27] LABS: Basophils Percent Auto 0.3 % (0.2-1.2); Eosinophils Absolute Auto 0.1 K/mm3 (0-0.3); Eosinophils Percent Auto 0.9 % (0-4.4); Hematocrit 49.9 % (42.0-52.0); Hemoglobin 16.9 g/dL (14.0-18.0); Immature Granulocyte Absolute 0.02 K/mm3 (0.00-0.031); Immature Granulocyte Percent A 0.2 % (0-0.5); Lymphocytes Absolute Auto 1.83 K/mm3 (0.9-3.2); Mean Corpuscular HGB Conc 33.9 g/dl (32-36); Mean Corpuscular Hemoglobin 30.4 pg (26-34); Mean Corpuscular Volume 89.7 fl (80-100); Mean Platelet Volume 9.3 fl (7.4-10.4); Monocytes Absolute Auto 0.6 K/mm3 (0.1-0.6); Monocytes Percent Auto 6.3 % (2.6-8.5); Neutrophils Absolute Auto 7.6 K/mm3 (1.3-6.7); Neutrophils Percent Auto 74.3 % (45.5-73.1); Platelet Count Result 256 k/mm3 (150-375); Red Blood Count 5.56 M/mm3 (4.6-6.20); Red Cell Distribution Width 12.5 % (11.5-14.5); White Blood Count 10.2 K/mm3 (4.5-10.0)
[2024-08-02 02:37] LABS: Alanine Aminotransferase 42 U/L (6-50); Albumin Level 4.7 g/dL (3.5-5.1); Alkaline Phosphatase 76 U/L (38-126); Anion Gap 12 mmol/L (4-12); Aspartate Amino Transferase 23 U/L (17-59); Bilirubin,Total 1.4 mg/dL (0.2-1.3); Blood Urea Nitrogen 16 mg/dL (9-20); Calcium 9.3 mg/dL (8.4-10.2); Carbon Dioxide 27 mmol/L (22-30); Chloride 101 mmol/L (98-107); Estimated CRCL calculation 69 ml/min; Estimated Glomerular Filt Rate 54; Glucose 113 mg/dL (65-110); Lipase 109 U/L (23-300); Magnesium 2.3 mg/dL (1.6-2.3); Potassium 4.4 mmol/L (3.4-5.0); Sodium 140 mmol/L (137-145)
[2024-08-02] MEDS: SODIUM CHLORIDE 0.9% IV 1,000 ML 999 ML IV CONT (02:37)
--- OUTSIDE RECORDS SUMMARY | 2024-08-02 02:42 | XMS_ITS | Referral Summary ---
Author Organization [facility] Address [address] [place] [address] Care Team Providers Care Canvas Shrinker Name Role Phone Yordan Gomez MD Primary Care Provider [phone] [phone] Encounters Date Type Department Care Team Description 08/01/2024 Telephone [facility] [address] [address] Yordan Gomez MD Request For Order(s) 07/23/2024 Results Follow-Up [facility] [address] [address] Lindy Gallagher NP Vitamin D deficiency (Primary Dx) 07/17/2024 7:00 AM CDT Office Visit [facility] [address] [address] Lindy Gallagher NP Mixed hyperlipidemia (Primary Dx); Testicular hypofunction; Fatigue, unspecified type; Chronic bilateral lower abdominal pain; Class 1 obesity due to excess calories with serious comorbidity and body mass index (BMI) of 32.0 to 32.9 in adult 07/01/2024 Telephone [facility] [address] [address] Lindy Gallagher NP from Last [...] healthier, we can set up appointment with aluminum container tester/home service demonstrator. 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 Phone Number [facility] * PSA, total (07/17/2024) SCRIBED PSA, Total 0.85 <= 4.00 ng/mL [facility] Blood 07/17/2024 Result [facility] MD LAB BLOOD ORDERABLES Eva l Result Performing Organization Address [facility] Phone Number [facility] * (ABNORMAL) LH - Luteinizing Hormone, Serum (07/17/2024) Blood 07/17/2024 Narrative [facility] - 07/17/2024 9:30 AM CDT Result: 0.2 L (LOW) Reference Range: 1.5-9.3 mIU/mL Result [facility] Provider MD LAB BLOOD ORDERABLES Edit ed Result - Final Performing Organization Address [facility] de Phone Number [facility] * (ABNORMAL) FSH, Serum (07/17/2024) Blood 07/17/2024 Narrative [facility] - 07/17/2024 9:30 AM CDT Result: <0.7 L (LOW) Reference Range: 1.4 - 12.8 mIU/mL Result [facility] Provider MD LAB BLOOD ORDERABLES Edit [...] ORDERABLES Eva l Result Performing Organization Address [facility]/ZIP Co de Phone Number [facility] * TSH (07/17/2024) Scribed TSH 1.19 0.40 - 4.50 mcU/mL [facility] Blood 07/17/2024 Historical Provider MD LAB BLOOD ORDERABLES Edit ed Result - Final Performing Organization Address [facility]/ZIP Co de Phone Number [facility] * (ABNORMAL) Lipid panel (07/17/2024) SCRIBED Cholesterol, Total 191 <200 mg/dL [facility] SCRIBED HDL 49 >= 40 mg/dL [facility] SCRIBED LDL 123 <100 mg/dL [facility] SCRIBED Triglycerides 90 <150 mg/dL [facility] Blood 07/17/2024 Historical Provider LAB BLOOD ORDERABLES Edit ed Result - Final Performing Organization Address [facility] Co de Phone Number [facility] * Comprehensive [...] 40 Units/L [facility] SCRIBED eGFR in NonAfrican Congolese 69 >=60 [facility] Blood 07/17/2024 us Historical Provider LAB BLOOD ORDERABLES Edit ed Result - Final [facility] * COLONOSCOPY (12/15/2020 2:38 PM CDT) Anatomical Region Laterality Modality Other Narrative Procedure Note Franklin Cerda MD - 12/15/2020 2:38 PM CDT [facility] Patient Name: Jean Starr Procedure Date: 12/15/2020 2:38 PM Date of : 1975 Admit Type: Outpatient Age: 45 Gender: Male Attending MD: Franklin Cerda M.D. Room: [facility] ENDOSCOPY ROOM 1 Note Status: Finalized Patient Profile: This is a 45 year old male. Grandfather had colon cancer. Patient complains of pain in the rectalarea. Colonoscopy for evaluation Procedure: Colonoscopy Indications: Screening in patient at increased risk: Familyhistory of 1st-degree relative with colorectal cancer, Thisis the patient's first colonoscopy Referring MD: Yoradn Gomez M.D. Providers: Franklin Cerda M.D. Impression: - Perianal skin tags found on perianal exam. - The entire examined colon is normal overall. - Mild early diverticulosis in the distal sigmoid colon. - Internal hemorrhoids. - No specimens collected. Recommendation: - Repeat colonoscopy in 10 years for screening purposes. - Continue present medications. - Use niai-tdm-frooscm antibiotic ointment on the perianal skin tag [...] passed under direct vision.The Pediatric Colonoscope PCF-H190L [id number] was introduced through the anus and advanced [...] 2:38 PM Procedure Code(s): --- Professional --- 30049, Colonoscopy, flexible; diagnostic, including collection of specimen(s) by brushing or washing, when performed (separateprocedure) Diagnosis Code(s): --- Professional --- Z80.0, Family history of malignant neoplasm of digestive organs K64.8, Other hemorrhoids K64.4, Residual hemorrhoidal skin tags K57.30, Diverticulosis of large intestine without perforation orabscess without bleeding CPT copyright 2019 [employer]. All rights reserved. The codes documented in this report are preliminary and upon dice dealer reviewmay be revised to meet current compliance requirements. Recognized by the [employer] for promoting quality [...] AmpliPrep/SPENCER TaqMan HCV Test, version 2.0 ([employer] Test Performed by: [address] [address] Blood specimen (specimen) 06/30/2016 1:55 PM CDT 06/30/2016 2:33 PM CDT Jonathon Rand MD LAB MICROBIOLOGY - GENERAL OR DERABLES Final Result [facility] ([place]) 1 [facility] Department [place] [address] from Last 3 Months or Most Recently Relevant to Health Maintenance Insurance [employer] [place] [employer] [place] Advance Directives For more information, please contact: [phone] * Full Code (Latest Code Status on File) Date Activated Date Inactivated Comments 12/15/2020 1:00 PM 12/15/2020 8:02 PM Care Teams Canvas Shrinker Relationship Specialty Start Date End Date Yordan Gomez MD [address] [place] [address] PCP - General 06/30/16
--- OUTSIDE RECORDS SUMMARY | 2024-08-02 02:42 | XMS_ITS | Clinical Summary ---
Author Organization [facility] Address [facility] [place] [address] Care Team Providers Care Field Logistics Coordinator Name Role Phone Juan J Treadwell MD [...] age to complete this topic Care Teams Field Logistics Coordinator Relationship Specialty Start Date End Date Juan J Treadwell MD PCP - General 07/29/10
--- OUTSIDE RECORDS SUMMARY | 2024-08-02 02:42 | XMS_ITS | Encounter Summary ---
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 Patient is scheduled for this afternoon. Order faxed to [phone]. documented in this encounter Plan of Treatment Not on file documented as of this encounter Visit Diagnoses Not on filedocumented in this encounter Care Teams Nailhead Operator Relationship Specialty Start Date End Date Yordan Gomez MD [address] [place] [address] PCP - General 06/30/16 documented as of this encounter
--- OUTSIDE RECORDS SUMMARY | 2024-08-02 02:42 | XMS_ITS | Encounter Summary ---
Author Organization 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
--- OUTSIDE RECORDS SUMMARY | 2024-08-02 02:42 | XMS_ITS | Clinical Summary ---
Author Organization [facility] Address [address] [place] [address] Care Team Providers Care Oleo Hasher And Renderer Name Role Phone Yordan Gomez MD Primary Care Provider [phone] Allergies No known active allergies Medications pravastatin [...] healthier, we can set up appointment with lines tender/loan documentation specialist. Have an active lifestyle, strive for 30 [...] & Plan (01/14/2021 9:47 AM CDT): 04/07/17 QY=782 HDL=49 PM=525 XIC=925 GLTAPV=857 12/16/20 MK=295 HDL=59 HS=593 VAH=638 TC/HDL=3.7 JSYGGF=969 12/14/20 MS=057 HDL=59 TN=896 FSD=194 TC/HDL=4 HMHPOZ=622 The 10-year ASCVD risk score ([place] JOSE Jr., et al., 2013) is: 1.6% [...] Team Description 08/01/2024 Telephone [facility] [address] [address] Yordan Gomez MD Request For Order(s) 07/23/2024 Results Follow-Up [facility] [address] [address] Lindy Gallagher, TERESITA Vitamin D deficiency (Primary Dx) 07/17/2024 7:00 AM CDT Office Visit [facility] [place] [address] [place] [id number] Lindy Gallagher NP Mixed hyperlipidemia (Primary Dx); Testicular hypofunction; Fatigue, unspecified type; Chronic bilateral lower abdominal pain; Class 1 obesity due to excess calories with serious comorbidity and body mass index (BMI) of 32.0 to 32.9 in adult 07/01/2024 Telephone [facility] [address] [address] Lindy Gallagher NP from Last [...] on file 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 Gender Identity Male 12/19/2019 2:38 PM CDT [...] 0.85 <= 4.00 ng/mL [facility] Blood 07/17/2024 [facility] Provider MD LAB BLOOD ORDERABLES Eva l Result Performing Organization Address [facility] de Phone Number [facility] * (ABNORMAL) LH - Luteinizing Hormone, Serum (07/17/2024) Blood 07/17/2024 Narrative [facility] - 07/17/2024 9:30 AM CDT Result: 0.2 L (LOW) Reference Range: 1.5-9.3 mIU/mL [facility] Provider MD LAB BLOOD ORDERABLES Edit ed Result - Final Performing Organization Address [facility] de Phone Number [facility] * (ABNORMAL) FSH, Serum (07/17/2024) Blood 07/17/2024 Narrative [facility] - 07/17/2024 9:30 AM CDT Result: <0.7 L (LOW) Reference Range: 1.4 - 12.8 mIU/mL [facility] Provider MD LAB BLOOD ORDERABLES Edit ed Result - Final Performing Organization Address [facility] de Phone Number [facility] * CBC with [...] ORDERABLES Eva l Result Performing Organization Address [facility]/ZIP Co de Phone Number [facility] * (ABNORMAL) Vitamin D 25 hydroxy (07/17/2024) Pathologist [facility] SCRIBED 25-OH Vitamin D 24 30 - 100 ng/mL [facility] Blood 07/17/2024 [facility] Provider MD LAB BLOOD ORDERABLES Eva l Result Performing Organization Address [facility]/ZIP Co de Phone Number [facility] * TSH (07/17/2024) Scribed TSH 1.19 0.40 - 4.50 mcU/mL [facility] Blood 07/17/2024 Result [facility] Provider MD LAB BLOOD ORDERABLES Edit ed Result - Final [facility] * (ABNORMAL) Lipid panel (07/17/2024) SCRIBED Cholesterol, Total 191 <200 mg/dL [facility] SCRIBED HDL 49 >= 40 mg/dL [facility] SCRIBED LDL 123 <100 mg/dL [facility] SCRIBED Triglycerides 90 <150 mg/dL [facility] Blood 07/17/2024 Historical Provider MD LAB BLOOD ORDERABLES Edit ed Result - Final Performing Organization Address [facility] Co de Phone Number [facility] * [...] 40 Units/L [facility] SCRIBED eGFR in NonAfrican Georgian 69 >=60 [facility] Blood 07/17/2024 Historical Provider LAB BLOOD ORDERABLES Edit ed Result - Final Performing Organization Address [facility] Co de Phone Number [facility] * COLONOSCOPY (12/15/2020 2:38 PM CDT) Anatomical Region Laterality Modality Other Narrative Procedure Note Franklin Cerda MD - 12/15/2020 2:38 PM CDT [facility] Patient Name: Jean Starr Procedure Date: 12/15/2020 2:38 PM Date of : 1975 Admit Type: Outpatient Age: 45 Gender: Male Attending MD: Franklin Cerda M.D. Room: ON LICENSE OF [facility] ENDOSCOPY ROOM 1 Note Status: Finalized Patient [...] purposes. - Continue present medications. - Use [id number] antibiotic ointment on the perianal skin tag [...] passed under direct vision.The Pediatric Colonoscope [id number] was introduced through the anus and advanced [...] 2:38 PM Procedure Code(s): --- Professional --- 65387, Colonoscopy, flexible; diagnostic, including collection of specimen(s) by brushing or washing, when performed (separateprocedure) Diagnosis Code(s): --- Professional --- Z80.0, Family history of malignant neoplasm of digestive organs K64.8, Other hemorrhoids K64.4, Residual hemorrhoidal skin tags K57.30, Diverticulosis of large intestine without perforation orabscess without bleeding CPT copyright 2019 [employer]. All rights reserved. The codes documented in this report are preliminary and upon human capital analyst reviewmay be revised to meet current compliance requirements. Recognized by the [employer] for promoting quality in endoscopy Franklin Cerda MD ENDOSCOPY PROCEDURES Final Result * Hepatitis C RNA, quantitative, PCR (06/30/2016 1:55 PM CDT) HCV RNA qn Undetected Undetected IUnits/mL [facility] Comment: Result in log IU/mL is Undetected. ADDITIONAL INFORMATION The quantification range of this assay is 15 to 100,000,000 IU/mL (1.18 log to 8.00 log IU/mL). Testing was performed by the [employer] AmpliPrep/[employer]ER TaqMan HCV Test, version 2.0 ([employer] Test Performed by: [place] [address] Blood specimen (specimen) 06/30/2016 1:55 PM CDT 06/30/2016 2:33 PM CDT Jonathon Rand MD LAB MICROBIOLOGY - GENERAL OR DERABLES Final Result [facility] [address] [place] [address] Department [place] [address] from Last 3 Months or Most Recently Relevant to Health Maintenance Insurance Bilibot ID Bilibot ID Advance Directives For more information, please contact: [phone] * Full Code (Latest Code Status on File) Date Activated Date Inactivated Comments 12/15/2020 1:00 PM 12/15/2020 8:02 PM Care Teams Oleo Hasher And Renderer Relationship Specialty Start Date End Date [place] [id number] PCP - General 06/30/16
[2024-08-02 04:27] VITALS: BP 144/95; PULSE 94; RESP 16; O2SAT 97
[2024-08-02 04:28] LABS: Add Urine Microscopic? NO; Appearance Urine Clear (Clear); Bilirubin Urine Negative (Negative); Blood Urine Negative (Negative); Color Urine Yellow (Yellow); Glucose Urine UA Negative (Negative); Ketones Urine Negative (Negative); Leukocyte Esterase Ur Negative LEU/UL (Negative); Nitrate Urine Negative (Negative); Protein Urine Negative (Negative); Specific Grav Ur 1.019 (1.001-1.035)
--- NOTE | 2024-08-02 04:31 | ED.ABDPAIN ---
HPI - Abdominal Pain General Chief Complaint: Abdominal Pain Stated Complaint: abd pain Time Seen by Provider: 08/02/24 02:14 History of Present Illness HPI narrative: Patient is a 48-year-old male who presents to the emergency department this evening complaining of left lower quadrant abdominal pain, constipation and decrease urinary output. Patient states the symptoms started approximately 3-4 days ago and have been progressively getting worse. Pain is localized to the suprapubic and left lower quadrant region. Patient states that he feels as though his belly is distended. Patient did present to [facility] yesterday and did have a CT abdomen pelvis without contrast obtained. When asked why the study was done without contrast, patient states that the insurance company did not authorize/approved one with contrast. Denies any nausea vomiting, any recent illness, fevers or chills. Related Data Allergies Allergy/AdvReac Type Severity Reaction Status Date / Time NKDA Allergy Mild Unknown Uncoded 08/02/24 02:12 Review of Systems Review of Systems: All systems are reviewed and are negative unless stated otherwise in the HPI. [facility]LY [facility] Past Medical History Medical History Patient denies significant medical history Social History Social History Smoking status: Never smoker Exam Narrative: General: Alert, awake, afebrile, in no acute distress. HEENT: PERRL, no rhinorrhea, no post nasal drip, oropharynx clear. Neck: Trachea midline, no JVD, no lymphadenopathy. Cardiovascular: Regular rate and rhythm, no murmurs, rubs or gallops, no peripheral edema. Respiratory: Clear to auscultation bilaterally, no tachypnea, no wheezing, no rhonchi, no rubs, no respiratory distress. Abdomen: Soft, tenderness palpation over the left lower quadrant, nondistended, no rebound, no guarding, no peritoneal signs. Musculoskeletal: No joint swelling or deformity, normal muscle tone. Skin: No rashes or petechia, no signs of infection. Psychiatric: Alert and oriented, normal behavior and judgment for situation. Neurological: Alert and oriented to person, place, and time. Follows all commands. No focal deficits, speech is clear and fluent. Course Vital Signs Vital signs: Vital Signs Temperature 98.8 F 08/02/24 02:15 Pulse Rate 108 H 08/02/24 02:15 Respiratory Rate 20 08/02/24 02:15 Blood Pressure 159/106 H 08/02/24 02:15 Pulse Oximetry 100 08/02/24 02:15 Oxygen Delivery Room Air 08/02/24 02:15 Temperature 98.8 F 08/02/24 02:15 Pulse Rate 92 08/02/24 06:23 Respiratory Rate 16 08/02/24 06:23 Blood Pressure 135/89 08/02/24 06:23 Pulse Oximetry 97 08/02/24 06:23 Oxygen Delivery Room Air 08/02/24 02:15 MDM - Abdominal Pain MDM Narrative Medical decision making narrative: The patient was evaluated by myself in the emergency department. History is obtained from patient who is an independent historian and physical exam was performed. External medical records were reviewed at this time. IV was established and pertinent tests were ordered. Patient was administered 4 mg of IV morphine for pain and 4 mg IV Zofran for nausea and 1 L IV fluid bolus with normal saline. Laboratory results obtained revealing no acute process. Urinalysis unremarkable. Imaging studies obtained included CT abdomen and pelvis with IV contrast which was independently interpreted by me revealing: Impression: Acute sigmoid diverticulitis. No abscess or free air. Diffuse hepatic steatosis. 5 mm nonobstructing left renal stone. Patient was informed of these findings at bedside. Informed that he will be started on an oral antibiotic to take at home for his diverticulitis and patient is agreeable with this plan. Differential diagnosis considerations include diverticulitis, constipation, cystitis, nephrolithiasis. Comorbidities impacting this visit include none. I have evaluated and discussed social determinants of health with the patient that could potentially impact subsequent diagnosis and treatment plans. On repeat assessment of the patient, reevaluation revealed that the patient is doing well and is in no acute distress. Patient symptoms have improved since he arrived to our emergency department. Repeat vital signs were all reviewed and noted to be stable. Differential diagnosis and treatment plan were discussed with the patient at bedside. Patient agrees with discussion and after shared medical decision making agrees with discharge. All questions were answered to the patient's satisfaction. Patient will follow up with his primary care physician in 3-5 days. A script for Augmentin was sent to patient's pharmacy to take 3 times a day for the next 10 days for his diverticulitis. Patient was provided with strict return precautions and instructed to return to the emergency department if any new or worsening symptoms develop. The patient was discharged in stable condition. Lab Data 08/02/24 02:20 08/02/24 02:20 Labs: Lab Results 08/02/24 08/02/24 Range/Units 02:20 04:22 WBC 10.2 H (4.5-10.0) K/mm3 RBC 5.56 (4.6-6.20) M/mm3 Hgb 16.9 (14.0-18.0) g/dL Hct 49.9 (42.0-52.0) % MCV 89.7 (80-100) fl MCH 30.4 (26-34) pg MCHC 33.9 (32-36) g/dl RDW 12.5 (11.5-14.5) % Plt Count 256 (150-375) k/mm3 MPV 9.3 (7.4-10.4) fl Immature Gran % (Auto) 0.2 (0-0.5) % Neut % (Auto) 74.3 H (45.5-73.1) % Lymph % (Auto) 18.0 L (18.3-44.2) % [place] % (Auto) 6.3 (2.6-8.5) % Eos % (Auto) 0.9 (0-4.4) % Baso % (Auto) 0.3 (0.2-1.2) % Lymph # (Auto) 1.83 (0.9-3.2) K/mm3 [place] # (Auto) 0.6 (0.1-0.6) K/mm3 Eos # (Auto) 0.1 (0-0.3) K/mm3 Baso # (Auto) 0.0 (0.0-0.1) K/mm3 Abs Immat Gran (auto) 0.02 (0.00-0.031) K/mm3 Absolute Neuts (auto) 7.6 H (1.3-6.7) K/mm3 Absolute Nucleated RBC 0.000 (0.0-0.012) K/mm3 Nucleated RBC % 0.0 (0.0-0.2) % Sodium 140 (137-145) mmol/L Potassium 4.4 (3.4-5.0) mmol/L Chloride 101 (98-107) mmol/L Carbon Dioxide 27 (22-30) mmol/L Anion Gap 12 (4-12) mmol/L BUN 16 (9-20) mg/dL Creatinine 1.40 H (0.7-1.3) mg/dL Estim Creat Clear Calc 69 ml/min Estimated GFR 54 L (59 - ) Glucose 113 H (65-110) mg/dL Calcium 9.3 (8.4-10.2) mg/dL Magnesium 2.3 (1.6-2.3) mg/dL Total Bilirubin 1.4 H (0.2-1.3) mg/dL AST 23 (17-59) U/L ALT 42 (6-50) U/L Alkaline Phosphatase 76 (38-126) U/L Total Protein 8.0 (6.3-8.2) g/dL Albumin 4.7 (3.5-5.1) g/dL Lipase 109 (23-300) U/L Urine Color Yellow (Yellow) Urine Appearance Clear (Clear) Urine pH 7.0 (5.0-9.0) Ur Specific [place] 1.019 (1.001-1.035) Urine Protein Negative (Negative) mg/dL Urine Glucose (UA) Negative (Negative) mg/dL Urine Ketones Negative (Negative) mg/dL Ur Blood (Man) Negative (Negative) Urine Nitrate Negative (Negative) Urine Bilirubin Negative (Negative) Urine Urobilinogen 1.0 (<2.0) mg/dL Leukocyte Esterase Rfl Negative (Negative) HARMAN/UL Imaging Data Radiologist's impression: ITS Impressions Abdomen/Pelvis CT 08/02/24 06:16 Impression: Acute sigmoid diverticulitis. No abscess or free air. Diffuse hepatic steatosis. 5 mm nonobstructing left renal stone. Discharge Plan Discharge Clinical Impression: Abdominal pain, acute, left lower quadrant, Diverticulitis Patient Disposition: Home Condition: Improved Instructions: Antibiotic Form, Diverticulitis (ED), Abdominal Pain (ED) Additional Instructions: Please take the prescribed antibiotic as instructed 3 times daily for the next 10 days for your diverticulitis. Follow-up with your family doctor within the next 3-5 days. Under emergency department if any new or worsening symptoms develop. Patient Language: Azeri Prescriptions: New amoxicillin-pot clavulanate 875-125 mg tablet 1 tablet PO Q8H 10 Days Qty: 30 0RF hydrocodone-acetaminophen 5-325 mg tablet 1 tablet PO Q8H PRN (Reason: pain) Qty: 7 0RF No Action cyclobenzaprine 10 mg tablet 10 mg PO TID PRN (Reason: muscle spasm) Qty: 8 0RF ibuprofen 600 mg tablet 600 mg PO TID PRN (Reason: pain) Qty: 14 0RF Follow-up/Referrals: Elliott,Lindy Rea NP [Primary Care Provider] - 3 Days Time of Disposition: 06:30
[2024-08-02] MEDS: ONDANSETRON INJ 4 MG/2 ML VIAL IV PUSH (04:34)
[2024-08-02] MEDS: MORPHINE SULFATE (*CRX) 4 MG/ML INJ IV PUSH (04:34)
[2024-08-02 06:23] VITALS: BP 135/89; PULSE 92; RESP 16; O2SAT 97
[2024-08-02 06:36] VITALS: BP 126/88; PULSE 95; RESP 17; O2SAT 97
== END 2024-08-02 06:43 | disposition home or self-care (01) ==
PROVIDERS: Emergency Provider Emergency Medicine; PCP Nurse Practitioner Family
DX: K57.32 Diverticulitis of large intestine without perforation or abscess without bleeding (principal); K76.0 Fatty (change of) liver, not elsewhere classified; N20.0 Calculus of kidney
CPT/HCPCS: 36415; 74177; 80053; 81003; 83690; 83735; 85025; 96361; 96374; 96375; 99284; J2270; J2405; J7030; Q9967

== ENCOUNTER 2025-01-27 15:14 | Outpatient (CLI) | payer BC, SELFPAY ==
--- NOTE | ~2025-01-27 | CT_ITS ---
EXAMINATION: CT abdomen pelvis wo/w con DATE: 01/27/2025 15:53 INDICATION: Gross hematuria. TECHNIQUE: Computed tomography (CT) of the abdomen and pelvis was performed without and with intravenous contrast using a total of 130 mL Omnipaque-350 intravenous contrast with a double-bolus technique for simultaneous opacification of the renal parenchyma and renal collecting system. Automated exposure control and iterative reconstruction technique were employed. The dose- length product was 2218.80 mGy-cm. COMPARISON: CT abdomen and pelvis 08/02/2024 FINDINGS: The visualized portions of the lung bases demonstrate mild atelectasis on the right. No pleural effusion. The heart size is normal. No pericardial effusion. There is diffuse hepatic steatosis. The gallbladder, spleen, pancreas, adrenal glands, and right kidney are normal. There is a 5 mm stone in left kidney. The ureters are well opacified and are normal. The bladder is normal. The prostate is mildly enlarged. There are no dilated loops of bowel. The appendix is normal. There are no pathologically enlarged lymph nodes. There is no free intraperitoneal fluid. There is an umbilical hernia containing fat. There is severe lower lumbar spondylosis. There is moderate thoracic spondylosis. There is mild chronic anterior wedging of multiple thoracic vertebral bodies. IMPRESSION: 1. 5 mm nonobstructing left kidney stone. 2. Diffuse hepatic steatosis. Reviewed, dictated and finalized at location E.
== END 2025-01-27 15:15 | disposition home or self-care (01) ==
LOC: MICIMG 15:14
PROVIDERS: PCP Nurse Practitioner Family; Visit Provider Nurse Practitioner Family
DX: R31.0 Gross hematuria (principal)
CPT/HCPCS: 74178; Q9967